=== PATIENT | male | born 1995 | race Caucasian/White ===

== ENCOUNTER 2019-12-18 11:52 | Emergency (ER) | payer OTHER ==
[~2019-12-18] VITALS: Ht 195.6 cm; Wt 123.8 kg
--- NOTE | 2019-12-18 12:21 | NUR ---
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
[2019-12-18] MEDS ORDERED: CEFAZOLIN 1,000 MG IM ONE (13:30)
--- NOTE | 2019-12-18 13:39 | NUR ---
LATE ENTRY: PT PRESENTED TO ED DT LACERATION TO RIGHT MIDDLE FINGER. PT STATES AT WORK WHEN INCIDENT HAPPENED.
--- NOTE | 2019-12-18 13:42 | NUR ---
TECH AT BEDSIDE IRRIGATING WOUND.
[2019-12-18] MEDS ORDERED: CEFAZOLIN 1,000 MG ONE (13:43)
[2019-12-18] MEDS ORDERED: CEFAZOLIN PMX 1GM/50ML 50 ML ONE (13:43)
--- NOTE | 2019-12-18 13:57 | NUR ---
PT MEDICATED PER EMAR.
[2019-12-18 13:58] VITALS: BP 109/70
--- NOTE | 2019-12-18 14:32 | NUR ---
ERMD AT BEDSIDE REEVALUATING PT AFTER LAC WAS IRRIGATED BY TECH.
[2019-12-18] MEDS ORDERED: LIDOCAINE-MPF 1%, 5ML INFIL ONE (15:00)
--- NOTE | 2019-12-18 15:12 | NUR ---
REVIEW OF CHART, ASSUME CARE OF PT AT THIS TIME.
--- NOTE | 2019-12-18 15:21 | NUR ---
REPORT TO SALVADOR NIÑO TO ASSUME PRIMARY CARE OF PT.
[2019-12-18] MEDS ORDERED: LIDOCAINE-MPF 1%, 5ML ONE (15:25)
--- NOTE | 2019-12-18 15:40 | NUR ---
LIDOCAINE PROVIDED TO PA. SUTURE SETUP AT BS.
[2019-12-18] MEDS ORDERED: NEOSPORIN OINT. PKT 1 PACKET ONE (16:20)
== END 2019-12-18 17:14 | disposition home or self-care (01) ==
LOC: ED 14:27
DX: S66.122A Laceration of flexor muscle, fascia and tendon of right middle finger at wrist and hand level, initial encounter (principal); W26.8XXA Contact with other sharp object(s), not elsewhere classified, initial encounter; Y93.89 Activity, other specified; Y92.89 Other specified places as the place of occurrence of the external cause; Y99.0 Civilian activity done for income or pay
CPT/HCPCS: 12001; 73140; 99283; J0690